=== PATIENT | female | born 1990 | race Caucasian/White ===

== ENCOUNTER → 2017-03-21 | Outpatient (CLI) | payer OTHER ==
--- NOTE | ~2017-03-21 | US98 ---
[facility] A Service of [facility] & [facility] RADIOLOGY TEXT RESULTS PATIENT: BETTY FERNANDES LOCATION: [facility] : [birth year] UNIT #: [id number] AGE: [address]: ANITA SONI APRN SEX: F ORDER DR: [id number] [facility] [address] [place], [place] [address] [id number] O MR#: [id number] Acc #: [id number] NAME: BETTY FERNANDES : 1990 SEX: F STUDY DATE/TIME: 03/21/2017 14:46 UNIT: [facility] ROOM: STUDY DESCRIPTION: US Pelvic Non-OB Complete Attending Physician: Rd Soni M.D. Referring Physician: Rd Soni M.D. Ordering Physician: Rd Soni M.D. Primary Care Physician: Satya Womack M.D. MEDICAL IMAGING REPORT This report is preliminary unless electronic signature is present EXAM Transabdominal and transvaginal pelvic ultrasound; 03/21/2017. HISTORY Pelvic pain and irregular menstrual cycles for 5 months. Diffuse pelvic pain. No known injury. Abdominal and pelvic distension and bloating, pain radiates into legs bilaterally. TECHNIQUE Transabdominal and transvaginal pelvic ultrasound was performed. Endovaginal ultrasound was performed for attempted better visualization of the adnexal structures. FINDINGS The bladder is normal in appearance. The uterus measures 8.4 cm craniocaudal by 3.8 cm AP by 4.9 cm transverse. The endometrial stripe measures 5 mm. The left ovary measured 1.8 cm x 2.2 cm by approximately 3 cm while the right ovary measured 2.4 cm x 3.6 cm x 2.1 cm. Small follicles were seen on both ovaries. Color flow Doppler images show normal blood flow to both ovaries. There is no adnexal mass and there is no free fluid in the pelvis. IMPRESSION Negative transabdominal and transvaginal pelvic ultrasound. Dictated by... Bry Garland M.D. THIS IS AN ELECTRONICALLY VERIFIED REPORT Bry Garland M.D. at 03/22/2017 2:16 PM KRT/sinan [facility] A Service of [facility] & [facility] RADIOLOGY TEXT RESULTS PATIENT: BETTY FERNANDES LOCATION: [facility] : [birth year] UNIT #: [id number] AGE: [address]: ANITA SONI APRN SEX: F ORDER DR: TD: 03/22/2017 02:34 JOB #: [id number] MEDICAL IMAGING REPORT Page 1 of 1 COPY
== END | disposition home or self-care (01) ==
LOC: CWCC 14:34
DX: R10.2 Pelvic and perineal pain (principal)
CPT/HCPCS: 76830; 76856

== ENCOUNTER 2017-04-23 10:11 | Emergency (ER) | payer OTHER ==
[~2017-04-23] VITALS: Ht 157.5 cm; Wt 84.8 kg
--- NOTE | ~2017-04-23 | CR63 ---
[facility] A Service of [facility] & [facility] RADIOLOGY TEXT RESULTS PATIENT: BETTY FERNANDES LOCATION: [facility] : [birth year] UNIT #: [id number] AGE: [address]: Dawit Reddy DO SEX: F ORDER DR: [id number] [facility] [address] [place], [place] [address] [id number] E MR#: [id number] Acc #: [id number] NAME: BETTY FERNANDES : 1990 SEX: F STUDY DATE/TIME: 04/23/2017 11:35 UNIT: [facility] ROOM: STUDY DESCRIPTION: CR Chest 2 View Attending Physician: Dawit Reddy D.O. Ordering Physician: Dawit Reddy D.O. Primary Care Physician: Satya Womack M.D. MEDICAL IMAGING REPORT This report is preliminary unless electronic signature is present EXAM Chest 2 views 04/23/2017 1135 hours CLINICAL HISTORY 56-year-old with 5-day history of cough, congestion, chills and vomiting. COMPARISON None. FINDINGS Upright PA and lateral views of the chest demonstrate normal cardiac, mediastinal and hilar contours. The lungs are clear and there are no effusions. IMPRESSION Normal two-view chest exam. Dictated by... Summer Gee M.D. THIS IS AN ELECTRONICALLY VERIFIED REPORT Summer Gee M.D. at 04/23/2017 2:35 PM JAMEE/lakhwinder TD: 04/23/2017 13:58 JOB #: [id number] MEDICAL IMAGING REPORT Page 1 of 1 COPY
--- NOTE | ~2017-04-23 | CT71 ---
[facility] A Service of [facility] RADIOLOGY TEXT RESULTS PATIENT: BETTY FERNANDES LOCATION: [facility] : 90 UNIT #: [id number] AGE: [address]: Dawit Reddy DO SEX: F ORDER DR: [id number] [facility] [place], [place] [address] [id number] E MR#: [id number] Acc #: [id number] NAME: BETTY FERNANDES : 1990 SEX: F STUDY DATE/TIME: 04/23/2017 11:50 UNIT: [facility] ROOM: STUDY DESCRIPTION: CT Head Wo Contrast Attending Physician: Dawit Reddy D.O. Ordering Physician: Dawit Reddy D.O. Primary Care Physician: Satya Womack M.D. MEDICAL IMAGING REPORT This report is preliminary unless electronic signature is present EXAM CT head without contrast. INDICATION Cough, fever, and frontal headache for [address] images were obtained from the vertex of the skull through the skull base. No intravenous contrast material was administered. This CT exam was performed with one or more of the following radiation dose reduction techniques: automatic exposure control, adjustment of mA and/or kV according to patient size, and iterative reconstruction. FINDINGS No acute intracranial hemorrhage is identified. Brain parenchyma is normal in attenuation with no focal areas of decreased attenuation seen. There is no midline shift or mass effect and the ventricles are normal in size. There is near complete opacification of the ethmoid sinuses with inspissated secretions seen within the sphenoid sinuses bilaterally. The mastoid air cells appear clear. No aggressive osseous abnormalities are seen. There are no focal soft tissue abnormalities. IMPRESSION 1. No acute intracranial process identified. Specifically, there is no evidence of acute hemorrhage, mass lesion, or acute infarct. 2. Extensive sinus inflammatory changes, particularly involving the ethmoid sinuses. Dictated by... Raquel Wills M.D. [facility] A Service of [facility] RADIOLOGY TEXT RESULTS PATIENT: BETTY FERNANDES [id number] : [birth year] UNIT #: [id number] AGE: [address]: Dawit Reddy DO SEX: F ORDER DR: THIS IS AN ELECTRONICALLY VERIFIED REPORT Raquel Wills M.D. at 04/23/2017 4:51 PM AFF/greg TD: 04/23/2017 13:52 JOB #: [id number] MEDICAL IMAGING REPORT Page 1 of 1 COPY
[2017-04-23 11:00] LABS: BASOPHIL% 0.6 % (0-2.5); DIFF IND NO; EOSINOPHIL# 0.3 X10e3 (0-0.7); EOSINOPHIL% 3.7 % (0.0-7.0); HEMATOCRIT 44.2 % (35.0-45.0); HEMOGLOBIN 14.4 gm/dL (12.0-16.0); LYMPHOCYTE# 2.6 X10e3 (1.0-3.5); LYMPHOCYTE% 28.6 % (17.0-45.0); MEAN CELL VOLUME 88.3 FL (83-96); MEAN CORPUSCULAR HEMOGLOBIN 28.7 PG (28-34); MEAN CORPUSCULAR HGB CONC 32.5 g/dL (30-36); MEAN PLATELET VOLUME 11.4 FL (6.5-11.5); MONOCYTE# 0.5 X10e3 (0-1.0); MONOCYTE% 5.4 % (3.0-12.0); NEUTROPHIL# 5.6 X10e3 (1.5-7.1); NEUTROPHIL% 61.7 % (40-75); PLATELET COUNT 216 X10e3 (140-420); RED BLOOD COUNT 5.01 X10e (3.90-5.30); RED CELL DISTRIBUTION WIDTH 13.7 % (11.0-15.5)
[2017-04-23 11:42] LABS: ALBUMIN SERUM 4.3 g/dL (3.5-5.0); ALKALINE PHOSPHATASE 47 U/L (32-92); ALT (SGPT) 13 U/L (10-40); AST (SGOT) 16 U/L (10-42); BILIRUBIN, DIRECT <0.1 mg/dL (0.0-0.2); BILIRUBIN,INDIRECT 0.3 mg/dL (0.0-0.9); BILIRUBIN,TOTAL 0.4 mg/dL (0.2-2.0); BLOOD UREA NITROGEN 7 mg/dL (9-23); CALCIUM SERUM 9.3 mg/dL (8.4-10.2); CARBON DIOXIDE 27 mmol/L (22-31); CHLORIDE 107 mmol/L (100-111); CREATININE SERUM 0.7 mg/dL (0.6-1.4); GLOM FILT RATE Estimated 119.6 mL/min (>60); GLUCOSE FASTING 95 mg/dL (70-110); POTASSIUM 3.8 mmol/L (3.5-5.1); PROTEIN TOTAL SERUM 7.4 g/dL (6.0-8.3); SODIUM 140 mmol/L (135-145)
[2017-04-23 13:05] LABS: URINE SOURCE CLEAN CATCH
[2017-04-23 13:19] LABS: URINE APPEARANCE CLEAR; URINE BILIRUBIN NEG (NEG); URINE BLOOD NEG (NEG); URINE COLOR YELLOW; URINE GLUCOSE NORM (NORM); URINE KETONE NEG (NEG); URINE LEUKOCYTE ESTERASE NEG (NEG); URINE NITRATE NEG (NEG); URINE PROTEIN NEG (NEG); URINE SPECIFIC GRAVITY 1.005 (1.003-1.035); URINE UROBILINOGEN NORM (NORM)
[2017-04-23 13:22] LABS: CULTURE INDICATED? NO
== END 2017-04-23 13:45 | disposition home or self-care (01) ==
LOC: CED 10:11
PROVIDERS: Emergency Medicine
DX: J01.90 Acute sinusitis, unspecified (principal)
CPT/HCPCS: 36415; 70450; 71020; 80048; 80076; 81003; 85025; 94640; 96361; 96374; 96375; 99284; J2405